=== PATIENT | female | born 1980 | race Two or more races ===

== ENCOUNTER 2018-10-01 09:35 | Emergency (ER) | payer OTHER ==
[~2018-10-01] VITALS: Ht 149.9 cm; Wt 45.4 kg
[2018-10-01] MEDS ORDERED: INTESTINEX680 M1 PO (13:27)
== END 2018-10-01 14:10 | disposition home or self-care (01) ==
LOC: ER 09:35
DX: R19.7 Diarrhea, unspecified (principal)

== ENCOUNTER 2018-10-16 21:15 | Emergency (ER) | payer OTHER ==
[~2018-10-16] VITALS: Ht 147.3 cm; Wt 47.6 kg
[~2018-10-16 21:15] MED LIST: INTESTINEX680 M1 PO
== END 2018-10-16 23:54 | disposition home or self-care (01) ==
LOC: ER 21:15
DX: J06.9 Acute upper respiratory infection, unspecified (principal)

== ENCOUNTER 2018-11-07 19:22 | Emergency (ER) | payer OTHER ==
[~2018-11-07] VITALS: Ht 149.9 cm; Wt 47.6 kg
[2018-11-07] MEDS ORDERED: DICLOFENAC SODI75 MG PO (19:50)
== END 2018-11-07 20:22 | disposition home or self-care (01) ==
LOC: ER 19:22
DX: M25.562 Pain in left knee (principal)

== ENCOUNTER 2019-02-14 19:49 | Emergency (ER) | payer OTHER ==
[~2019-02-14] VITALS: Ht 149.9 cm; Wt 46.3 kg
[~2019-02-14 19:49] MED LIST changes: +DICLOFENAC SODI75 MG PO
[2019-02-14] MEDS ORDERED: OSEL75CA PO (21:47)
== END 2019-02-14 21:53 | disposition home or self-care (01) ==
LOC: ER
DX: J09.X2 Influenza due to identified novel influenza A virus with other respiratory manifestations (principal)

== ENCOUNTER → 2020-05-29 15:00 | Outpatient (CLI) | payer OTHER ==
[~2020-05-29 15:00] MED LIST changes: +OSEL75CA PO
== END | disposition home or self-care (01) ==
LOC: PPH VACUNA 15:00
DX: Z23 Encounter for immunization (principal)

== ENCOUNTER → 2020-06-19 15:13 | Outpatient (CLI) | payer OTHER | END | disposition home or self-care (01) | LOC: PPH VACUNA 15:13 | DX: Z23 Encounter for immunization (principal) ==

== ENCOUNTER 2020-09-03 18:13 | Emergency (ER) | payer OTHER ==
[~2020-09-03] VITALS: Ht 149.9 cm; Wt 0.5 kg
[2020-09-03] MEDS ORDERED: TRI-SPRINTEC T1 EACH (18:22)
== END 2020-09-03 22:21 | disposition home or self-care (01) ==
LOC: ER 18:13
DX: N92.1 Excessive and frequent menstruation with irregular cycle (principal); D25.9 Leiomyoma of uterus, unspecified

== ENCOUNTER 2020-12-31 16:51 | Emergency (ER) | payer OTHER ==
[~2020-12-31] VITALS: Ht 149.9 cm; Wt 44.9 kg
[~2020-12-31 16:51] MED LIST changes: +TRI-SPRINTEC T1 EACH
== END 2020-12-31 22:15 | disposition home or self-care (01) ==
LOC: ER 16:51
DX: U07.1 COVID-19 (principal)

== ENCOUNTER 2021-01-03 15:30 | Outpatient (CLI) | payer OTHER | END 2021-01-03 16:30 | disposition home or self-care (01) | LOC: ASH CLINIC 15:30 | PROVIDERS: ATTEND General Practice | DX: Z23 Encounter for immunization (principal); U07.1 COVID-19 ==

== ENCOUNTER 2021-01-13 20:29 | Emergency (ER) | payer OTHER ==
[~2021-01-13] VITALS: Ht 149.9 cm; Wt 44.9 kg
== END 2021-01-14 00:05 | disposition home or self-care (01) ==
LOC: ER 20:29
DX: J30.9 Allergic rhinitis, unspecified (principal)

== ENCOUNTER 2022-02-25 17:35 | Emergency (ER) | payer OTHER ==
[~2022-02-25] VITALS: Ht 149.9 cm; Wt 43.5 kg
== END 2022-02-25 22:51 | disposition home or self-care (01) ==
LOC: ER 17:35
DX: J10.1 Influenza due to other identified influenza virus with other respiratory manifestations (principal); Z20.822 Contact with and (suspected) exposure to COVID-19

== ENCOUNTER 2022-10-21 11:48 | Emergency (ER) | payer OTHER ==
[~2022-10-21] VITALS: Ht 149.9 cm; Wt 44.0 kg
[2022-10-21] MEDS ORDERED: ZYRTEC10 MG PO (15:53)
[2022-10-21] MEDS ORDERED: ZITHROMAX500 MG PO (15:53)
== END 2022-10-21 16:09 | disposition home or self-care (01) ==
LOC: ER 11:48
PROVIDERS: General Practice
DX: R53.81 Other malaise (principal); J06.9 Acute upper respiratory infection, unspecified; B34.9 Viral infection, unspecified; Z20.822 Contact with and (suspected) exposure to COVID-19

== ENCOUNTER 2023-02-23 12:52 | Emergency (ER) | payer OTHER ==
[~2023-02-23] VITALS: Ht 149.9 cm; Wt 44.5 kg
[~2023-02-23 12:52] MED LIST changes: +ZITHROMAX500 MG PO; +ZYRTEC10 MG PO
== END 2023-02-23 18:38 | disposition home or self-care (01) ==
LOC: ER 12:52
DX: R51.9 Headache, unspecified (principal); D64.9 Anemia, unspecified

== ENCOUNTER 2023-04-23 21:06 | Emergency (ER) | payer OTHER ==
[~2023-04-23] VITALS: Ht 149.9 cm; Wt 45.4 kg
[2023-04-23] MEDS ORDERED: FUSION PLUS CA1 EACH (22:11)
[2023-04-24] MEDS ORDERED: ACETAMINOPHEN 500 MG GEL..CAP PO STA (04:44)
[2023-04-24] MEDS ORDERED: KETOROLAC TROMETHAMINE 60 MG VIAL IM STA (04:44)
[2023-04-24 05:27] LABS: HEMATOCRIT 33.5 % (36.0-45.00); HEMOGLOBIN 10.6 g/dL (12.0-15.00); MEAN CORPUSCULAR HEMOGLOBIN 21.8 pg (27.00-32.0); MEAN CORPUSCULAR HGB CONC 31.6 g/dl (32.0-36.0); PLATELET COUNT 281 K/uL (150-450); RED BLOOD COUNT 4.86 M/uL (4.00-6.00); RED CELL DISTRIBUTION WIDTH 19.2 % (11.5-14.5)
[2023-04-24 05:30] LABS: MEAN CELL VOLUME 68.8 fL (80.00-100.00)
== END 2023-04-24 06:33 | disposition home or self-care (01) ==
LOC: ER 21:06
DX: N94.6 Dysmenorrhea, unspecified (principal); J06.9 Acute upper respiratory infection, unspecified; Z20.822 Contact with and (suspected) exposure to COVID-19